=== PATIENT | female | born 1935 | race Caucasian/White ===

== ENCOUNTER 2022-09-23 16:05 | Emergency (ER) | payer MEDICARE, MEDICAID ==
[~2022-09-23] VITALS: Ht 162.6 cm; Wt 54.4 kg
--- NOTE | 2022-09-23 16:17 | ED General ---
General Stated Complaint: HEAT EXHAUSTION Source of Information: Patient Exam Limitations: No Limitations History of Present Illness Date Seen by Provider: Sep 23, 2022 Time Seen by Provider: 16:07 Initial Comments 87-year-old female presents to the emergency department today for reported "unresponsiveness." She was riding a bus with poor air conditioning to the eye doctor. She states on arrival here that she thinks she got overheated. She was alert at the eye doctor but was not talking to them. She does not know if she passed out. She denies any chest pain, shortness of breath, abdominal pain just states "I got overheated." In speaking with the nursing facility they state that the patient frequently has episodes where she will not talk to them and will lie down on the floor as though she is unresponsive. They believe that this is her baseline and actually try to encourage the patient to return back to the nursing facility without evaluation however she insisted upon evaluation. She has no specific complaints on arrival here except for being overheated. All other systems reviewed and negative except documented per HPI. Voice recognition software was used to help create this chart Allergies and Home Medications Allergies Coded Allergies: No Known Drug Allergies (Unverified , 09/23/22) Patient Home Medication List Home Medication List Reviewed: Yes Review of Systems Review of Systems Constitutional: see HPI Past [id number] Hx Patient Social History Tobacco Use?: No Use of E-Cig and/or Vaping dev: No Substance use?: No Alcohol Use?: No Physical Exam Vital Signs Vital Signs - First Documented 09/23/22 16:10 Temp 36.7 Pulse 64 Resp 19 B/P (MAP) 136/71 (92) Pulse Ox 98 O2 Delivery Room Air Capillary Refill : Height, Weight, BMI Height: '" Weight: lbs. oz. kg; BMI Method: General Appearance: No Apparent Distress, WD/WN HEENT: Normal ENT Inspection, Pharynx Normal Neck: Full Range of Motion, Normal Inspection, Non Tender, Supple Respiratory: Chest Non Tender, Lungs Clear, Normal Breath Sounds, No Accessory Muscle Use, No Respiratory Distress Cardiovascular: Regular Rate, Rhythm, No Murmur, Normal Peripheral Pulses Gastrointestinal: Normal Bowel Sounds, No Organomegaly, Non Tender, Soft Extremity: Normal Inspection, Normal Range of Motion, Non Tender, No Calf Tenderness Neurologic/Psychiatric: Alert, Oriented x3, No Motor/Sensory Deficits, Normal Mood/Affect, medical transport specialist II-XII Norm as Tested Skin: Normal Color, Warm/Dry Progress/Results/Core Measures Suspected Sepsis SIRS Temperature: Pulse: Respiratory Rate: Laboratory Tests 09/23/22 16:12: White Blood Count 16.3H Blood Pressure / Mean: Laboratory Tests 09/23/22 16:12: Creatinine 1.30, Platelet Count 227, Total Bilirubin 0.2 Results/Orders Lab Results Laboratory Tests Test 09/23/22 16:12 Range/Units White Blood Count 16.3 H 4.3-11.0 10^3/uL Red Blood Count 4.05 3.80-5.11 10^6/uL Hemoglobin 12.0 11.5-16.0 g/dL Hematocrit 38 35-52 % Mean Corpuscular Volume 95 80-99 fL Mean Corpuscular Hemoglobin 30 25-34 pg Mean Corpuscular Hemoglobin Concent 31 L 32-36 g/dL Red Cell Distribution Width 14.2 10.0-14.5 % Platelet Count 227 130-400 10^3/uL Mean Platelet Volume 9.3 9.0-12.2 fL Immature Granulocyte % (Auto) 1 % Neutrophils (%) (Auto) 85 H 42-75 % Lymphocytes (%) (Auto) 7 L 12-44 % Monocytes (%) (Auto) 6 0-12 % Eosinophils (%) (Auto) 1 0-10 % Basophils (%) (Auto) 0 0-10 % Neutrophils # (Auto) 13.9 H 1.8-7.8 10^3/uL Lymphocytes # (Auto) 1.2 1.0-4.0 10^3/uL Monocytes # (Auto) 1.0 0.0-1.0 10^3/uL Eosinophils # (Auto) 0.2 0.0-0.3 10^3/uL Basophils # (Auto) 0.0 0.0-0.1 10^3/uL Immature Granulocyte # (Auto) 0.1 0.0-0.1 10^3/uL Neutrophils % (Manual) 82 % Lymphocytes % (Manual) 4 % Monocytes % (Manual) 7 % Band Neutrophils 2 % Atypical Lymphocytes 2 % Reactive Lymphocytes 3 % Sodium Level 142 135-145 MMOL/L Potassium Level 4.8 3.6-5.0 MMOL/L Chloride Level 107 98-107 MMOL/L Carbon Dioxide Level 26 21-32 MMOL/L Anion Gap 9 5-14 MMOL/L Blood Urea Nitrogen 27 H 7-18 MG/DL Creatinine 1.30 0.60-1.30 MG/DL Estimat Glomerular Filtration Rate 40 BUN/Creatinine Ratio 21 Glucose Level 92 70-105 MG/DL Calcium Level 9.0 8.5-10.1 MG/DL Corrected Calcium 9.2 8.5-10.1 MG/DL Total Bilirubin 0.2 0.1-1.0 MG/DL Aspartate Amino Transf (AST/SGOT) 31 5-34 U/L Alanine Aminotransferase (ALT/SGPT) 6 0-55 U/L Alkaline Phosphatase 82 40-136 U/L Total Protein 6.6 6.4-8.2 GM/DL Albumin 3.7 3.2-4.5 GM/DL My Orders Orders - CAREY DEVRIES DO Cbc With Automated Diff (09/23/22 16:11) Comprehensive Metabolic Panel (09/23/22 16:11) Ekg Tracing (09/23/22 16:11) Manual Differential (09/23/22 16:12) Vital Signs/I&O 09/23/22 16:10 Temp 36.7 Pulse 64 Resp 19 B/P (MAP) 136/71 (92) Pulse Ox 98 O2 Delivery Room Air Capillary Refill : ECG Comment Sinus rhythm with a rate of 67 bpm. Normal intervals. Normal axis. No ST or T wave abnormalities. No ectopy. No STEMI. Departure Communication (Admissions) Patient is alert, oriented and at her normal mental baseline. Vital signs are completely normal. She was diaphoretic upon arrival, improved in the air conditioning. I do believe this was just related to getting overheated and not related to an emergent medical condition. Have independently reviewed her labs. She does have a leukocytosis with a slight left shift however she has no evidence for infection at this time. I do not believe she requires antibiotics or any other treatment currently. She states she is feeling back to normal and requesting to go home. She is discharged home in stable condition. Impression Primary Impression: Heat exhaustion Qualified Codes: T67.5XXA - Heat exhaustion, unspecified, initial encounter Disposition: HOME, SELF-CARE Condition: Stable Departure-Patient Inst. Patient Instructions: Heat Illness ED Add. Discharge Instructions: You are seen in the emergency department today for altered level of consciousness. No emergent medical condition is identified. I do think you got slightly overheated today. Increase your fluids at home and rest. Return to the emergency department for any severe concerns. Follow-up with your primary doctor for any nonemergent needs. CAREY DEVRIES DO Sep 23, 2022 16:17
[2022-09-23 16:20] LABS: BASOPHILS % (AUTO) 0 % (0-10); EOSINOPHILS # (AUTO) 0.2 10^3/uL (0.0-0.3); EOSINOPHILS % (AUTO) 1 % (0-10); HEMATOCRIT 38 % (35-52); LYMPHOCYTES # (AUTO) 1.2 10^3/uL (1.0-4.0); LYMPHOCYTES % (AUTO) 7 % (12-44); MEAN CORPUSCULAR HEMOGLOBIN 30 pg (25-34); MEAN CORPUSCULAR HGB CONC 31 g/dL (32-36); MEAN CORPUSCULAR VOLUME 95 fL (80-99); MEAN PLATELET VOLUME 9.3 fL (9.0-12.2); MONOCYTES % (AUTO) 6 % (0-12); NEUTROPHILS # (AUTO) 13.9 10^3/uL (1.8-7.8); NEUTROPHILS % (AUTO) 85 % (42-75); PLATELET COUNT 227 10^3/uL (130-400); WHITE BLOOD COUNT 16.3 10^3/uL (4.3-11.0)
[2022-09-23 16:43] LABS: ALBUMIN 3.7 GM/DL (3.2-4.5); BILIRUBIN,TOTAL 0.2 MG/DL (0.1-1.0); CREATININE SERUM 1.3 MG/DL (0.60-1.30); POTASSIUM 4.8 MMOL/L (3.6-5.0); TOTAL PROTEIN 6.6 GM/DL (6.4-8.2)
[2022-09-23 16:52] LABS: ATYPICAL LYMPHOCYTES 2 %; BAND NEUTROPHILS 2 %; LYMPHOCYTES % (MANUAL) 4 %; MONOCYTES % (MANUAL) 7 %; NEUTROPHILS % (MANUAL) 82 %; REACTIVE LYMPHOCYTES 3 %
[2022-09-24 08:35] VITALS: BP 114/67
== END 2022-09-24 08:42 | disposition home or self-care (01) ==
LOC: ER FS 16:05
DX: T67.5XXA Heat exhaustion, unspecified, initial encounter (principal); D72.829 Elevated white blood cell count, unspecified; X30.XXXA Exposure to excessive natural heat, initial encounter
CPT/HCPCS: 36415; 80053; 85007; 85027; 93005